=== PATIENT | female | born 2000 | race Hispanic/Latino ===

== ENCOUNTER → 2022-02-25 15:54 | Outpatient (CLI) | payer OTHER, MEDICAID, SELFPAY ==
--- NOTE | 2022-02-25 15:57 | DI.US.S_ITS ---
PROCEDURE: US OB <= 14 WEEKS FETUS INDICATIONS: SIZE AND DATES OUTSIDE/PRIOR DATING DATA: Last menstrual period (LMP): 12/09/2021. LMP-based estimated date of delivery (GERARDO): 09/15/2022. First dating scan (date and location): 02/25/2022. Estimated date of delivery (GERARDO) from first dating scan: To 1023. TECHNIQUE: Real-time scanning was performed of the fetus and maternal pelvic organs, with image documentation. Endovaginal scanning was also performed to better visualize the fetus and maternal ovaries. COMPARISON: None. FINDINGS: Single live intrauterine is identified with crown-rump length measuring 2.97 cm corresponding to 9 weeks 6 days. Heart rate measures 180 beats per minute. Resolving corpus luteal cyst is noted on the right ovary. Small subchorionic hemorrhage is present measuring 4 x 3 x 10 mm. IMPRESSION: Single live intrauterine measuring 9 weeks 6 days. Small subchorionic hemorrhage. We strive to produce accurate, complete, and clear reports of imaging services. To assist us in improving patient care, this report was composed using standard report templates and voice recognition software. Therefore, it may contain abnormal punctuation, insertions and/or omissions. Occasional wrong-word or sound-alike substitutions may occur. Though we review the report and make efforts to correct it, we do recommend that the report be read carefully in proper context to recognize any text inaccuracies. Dictated by: Melania Carvalho M.D. on 02/25/2022 at 17:40 Approved by: Melania Carvalho M.D. on 02/25/2022 at 17:41
== END ==
PROVIDERS: Family Provider Family Medicine; PCP Family Medicine; Referring Provider Family Medicine; Visit Provider Family Medicine
DX: Z34.00 Encounter for supervision of normal first pregnancy, unspecified trimester (principal); Z3A.09 9 weeks gestation of pregnancy
CPT/HCPCS: 76801